=== PATIENT | female | born 1990 | race Caucasian/White ===

== ENCOUNTER 2019-09-21 12:32 | Outpatient (CLI) | payer MEDICAID ==
[~2019-09-21] VITALS: Ht 165.1 cm; Wt 63.6 kg
[2019-09-21 13:48] LABS: MEAN CORPUSCULAR HEMOGLOBIN 31.3 pg (27.0-34.8); MEAN CORPUSCULAR HGB CONC 33.4 g/dL (32.4-35.8); MEAN CORPUSCULAR VOLUME 93.6 fL (80-100); MEAN PLATELET VOLUME 8.9 fL (7.4-10.4); PLATELET COUNT 304 x10^3/uL (130-400); RED BLOOD COUNT 3.95 x10^6/uL (3.82-5.3); RED CELL DISTRIBUTION WIDTH 13.8 % (9.6-15.2)
[2019-09-21 13:48] LABS: MICROSCOPIC INDICATED
[2019-09-21 13:50] LABS: AMPHETAMINE SCREEN, URINE Negative (Negative); BARBITURATE SCREEN, URINE Negative (Negative); BENZODIAZEPINE SCREEN, URINE Negative (Negative); CANNABINOID SCREEN, URINE Negative (Negative); COCAINE SCREEN, URINE Negative (Negative); METHADONE SCREEN, URINE Negative (Negative); OPIATE SCREEN, URINE Negative (Negative)
== END 2019-09-21 15:53 | disposition home or self-care (01) ==
LOC: LDOP 12:32
PROVIDERS: ATTEND Obstetrics & Gynecology
DX: O9A.212 Injury, poisoning and certain other consequences of external causes complicating pregnancy, second trimester (principal); Z3A.24 24 weeks gestation of pregnancy; Z88.0 Allergy status to penicillin; V89.2XXA Person injured in unspecified motor-vehicle accident, traffic, initial encounter; Y93.89 Activity, other specified; Y92.89 Other specified places as the place of occurrence of the external cause; Y99.8 Other external cause status
CPT/HCPCS: 36415; 76805; 80307; 81001; 85027; 85460; 86592; 86762; 86850; 86900; 87086; 87340; 87389; 99211; G0463

== ENCOUNTER 2019-12-22 23:21 | Inpatient (IN) | payer MEDICAID ==
[~2019-12-22] VITALS: Ht 165.1 cm; Wt 73.2 kg
[2019-12-22] MEDS: LACTATED RINGERS 1,000 ML IV SCH (00:30)
[2019-12-22] MEDS ORDERED: OXYTOCIN 30U/ 0.9% NaCL 500ML 500 ML IV ONE (23:27)
[2019-12-22] MEDS ORDERED: OXYTOCIN 30U/ 0.9% NaCL 500ML 500 ML ONE (23:28)
[2019-12-22] MEDS ORDERED: LIDOCAINE 1%, 20ML ONE (23:28)
[2019-12-22] MEDS ORDERED: MISOPROSTOL 200 MCG TABLET ONE (23:28)
[2019-12-22] MEDS ORDERED: NEWBORN KIT ONE (23:28)
[2019-12-22] MEDS ORDERED: TERBUTALINE 1 MG/ML, 1ML IVPush PRN (23:30)
[2019-12-22] MEDS ORDERED: ONDANSETRON 2MG/ML, 2ML IVPush PRN (23:30)
[2019-12-22] MEDS ORDERED: FENTANYL PF 100 MCG/2ML IV PRN (23:30)
[2019-12-22] MEDS ORDERED: TERBUTALINE 1 MG/ML, 1ML SQ PRN (23:30)
[2019-12-22] MEDS ORDERED: FENTANYL PF 100 MCG/2ML IVPush PRN (23:30)
[2019-12-22] MEDS ORDERED: OXYTOCIN 10 UNITS/ML, 1ML ONE (23:36)
[2019-12-22 23:40] VITALS: BP 136/74
[2019-12-23] MEDS ORDERED: MISOPROSTOL 200 MCG TABLET ONE (00:30)
[2019-12-23] MEDS: OXYTOCIN 30U/ 0.9% NaCL 500ML 500 ML IV SCH ×20 (00:42→23:38)
[2019-12-23 00:45] LABS: MEAN CORPUSCULAR HEMOGLOBIN 26.2 pg (27.0-34.8); MEAN CORPUSCULAR HGB CONC 32.7 g/dL (32.4-35.8); MEAN CORPUSCULAR VOLUME 80.2 fL (80-100); MEAN PLATELET VOLUME 9.9 fL (7.4-10.4); PLATELET COUNT 265 x10^3/uL (130-400); RED BLOOD COUNT 3.93 x10^6/uL (3.82-5.3); RED CELL DISTRIBUTION WIDTH 15.8 % (9.6-15.2)
[2019-12-23] MEDS ORDERED: OXYTOCIN 30U/ 0.9% NaCL 500ML 500 ML ONE (00:45)
[2019-12-23] MEDS ORDERED: CALCIUM CARBONATE 500 MG TAB.CHEW PO PRN (01:00)
[2019-12-23] MEDS ORDERED: ACETAMINOPHEN 325 MG TABLET PO PRN (01:00)
[2019-12-23] MEDS ORDERED: ONDANSETRON 2MG/ML, 2ML IV PRN (01:00)
[2019-12-23] MEDS ORDERED: MISOPROSTOL 200 MCG TABLET PR PRN (01:00)
[2019-12-23] MEDS ORDERED: OXYTOCIN 10 UNITS/ML, 1ML IM PRN (01:00)
[2019-12-23] MEDS ORDERED: DOCUSATE 100 MG CAPSULE PO PRN (01:00)
[2019-12-23] MEDS ORDERED: SIMETHICONE 80 MG CHEW TAB PO PRN (01:00)
[2019-12-23] MEDS ORDERED: OXYcodone IR 5MG TABLET PO PRN ×2 (01:00)
[2019-12-23 01:44] LABS: BASOPHILS # (AUTO) 0.05 x10^3/uL (0-0.1); BASOPHILS % (AUTO) 0 % (0-1); EOSINOPHILS # (AUTO) 0.18 x10^3/uL (0-0.4); EOSINOPHILS % (AUTO) 1 % (1-7); LYMPHOCYTES # (AUTO) 2.15 x10^3/uL (1-3.4); LYMPHOCYTES % (AUTO) 11 % (22-44); MD SCAN; MONOCYTES # (AUTO) 0.75 x10^3/uL (0.2-0.8); MONOCYTES % (AUTO) 4 % (2-9); NEUTROPHILS # (AUTO) 16.87 x10^3/uL (1.8-6.8); NEUTROPHILS % (AUTO) 84 % (42-75)
[2019-12-23] MEDS: IBUPROFEN 600 MG TABLET PO PRN ×2 (02:59→22:28)
[2019-12-23 03:07] VITALS: BP 125/74
[2019-12-23 06:06] LABS: AMPHETAMINE SCREEN, URINE Positive (Negative); BARBITURATE SCREEN, URINE Negative (Negative); BENZODIAZEPINE SCREEN, URINE Negative (Negative); CANNABINOID SCREEN, URINE Negative (Negative); COCAINE SCREEN, URINE Negative (Negative); METHADONE SCREEN, URINE Negative (Negative); OPIATE SCREEN, URINE Negative (Negative)
[2019-12-23] MEDS: LACTATED RINGERS 1,000 ML IV SCH ×3 (07:27→22:38)
[2019-12-23 08:05] VITALS: BP 134/80
[2019-12-23 08:16] LABS: MEAN CORPUSCULAR HEMOGLOBIN 26.1 pg (27.0-34.8); MEAN CORPUSCULAR HGB CONC 32.5 g/dL (32.4-35.8); MEAN CORPUSCULAR VOLUME 80.4 fL (80-100); MEAN PLATELET VOLUME 9.2 fL (7.4-10.4); PLATELET COUNT 275 x10^3/uL (130-400); RED CELL DISTRIBUTION WIDTH 15.5 % (9.6-15.2)
[2019-12-23 08:35] LABS: BASOPHILS # (AUTO) 0.07 x10^3/uL (0-0.1); BASOPHILS % (AUTO) 0 % (0-1); EOSINOPHILS % (AUTO) 0 % (1-7); LYMPHOCYTES # (AUTO) 2.01 x10^3/uL (1-3.4); LYMPHOCYTES % (AUTO) 10 % (22-44); MD SCAN; MONOCYTES # (AUTO) 0.95 x10^3/uL (0.2-0.8); MONOCYTES % (AUTO) 5 % (2-9); NEUTROPHILS # (AUTO) 16.66 x10^3/uL (1.8-6.8); NEUTROPHILS % (AUTO) 85 % (42-75)
[2019-12-23] MEDS: PRENATAL VIT/IRON/FA 1 EACH TABLET PO SCH (10:45)
[2019-12-23 12:00] VITALS: BP 139/89
[2019-12-23 20:00] VITALS: BP 146/88
[2019-12-23 22:28] VITALS: BP 123/80
[2019-12-24] MEDS: OXYTOCIN 30U/ 0.9% NaCL 500ML 500 ML IV SCH ×7 (01:30→08:02)
[2019-12-24] MEDS: LACTATED RINGERS 1,000 ML IV SCH (07:27)
[2019-12-24 08:00] VITALS: BP 135/89
[2019-12-24] MEDS: PRENATAL VIT/IRON/FA 1 EACH TABLET PO SCH (08:26)
[2019-12-24] MEDS ORDERED: IBUP-1222 PO (12:57)
== END 2019-12-24 13:12 | disposition home or self-care (01) | DRG 807 ==
LOC: LDOP 23:21 → LDIP 23:30 → 2NW 12-23 02:40
PROVIDERS: ADMIT Obstetrics & Gynecology; ATTEND Obstetrics & Gynecology
PROC: 10E0XZZ Delivery of Products of Conception, External Approach (ICD-10-PCS; principal; 2019-12-23)
DX: O62.3 Precipitate labor (principal); Z37.0 Single live birth; Z88.0 Allergy status to penicillin; O34.219 Maternal care for unspecified type scar from previous cesarean delivery; Z3A.38 38 weeks gestation of pregnancy
CPT/HCPCS: 36415; 80307; 85025; 86592; 86850; 86900; G0378; J2590; J7120